=== PATIENT | female | born 1960 | race Caucasian/White ===

== ENCOUNTER 2017-09-14 09:41 | Emergency (ER) | payer SELFPAY ==
[~2017-09-14] VITALS: Ht 167.6 cm; Wt 79.4 kg
--- NOTE | 2017-09-14 10:12 | ED Integumentary General ---
General Chief Complaint: Bite-Animal/Human/Insect Stated Complaint: DOG BITE RIGHT WRIST Nursing Triage Note: PT STATES WAS BIT BY DOG LAST NITE ON R WRIST, PT HAS 2 FANGS MARADIAGA ON TOP 1CM AND BOTTOM 3CM OF WRIST. DOG WAS NEIGHBORS DOG AND IT UTD ON SHOTS. Source: patient, family Exam Limitations: no limitations History of Present Illness Date Seen by Provider: Sep 14, 2017 Time Seen by Provider: 10:07 Initial Comments Patient presents to ER by private conveyance with a chief complaint that she saw her neighbor's dog get hit by car and she went out to help it and it bit her on the right forearm. She is right-handed. She has no limitation in her range of motion or loss of sensation. She has not taken anything for the pain or should anything right now. Allergies and Home Medications Allergies Coded Allergies: Sulfa (Sulfonamide Antibiotics) (Verified Allergy, Unknown, 09/14/17) Home Medications No Active Prescriptions or Reported Meds Patient Home Medication List Home Medication List Reviewed: Yes Constitutional: No chills, No diaphoresis EENTM: No ear discharge, No hearing loss, No ear pain Respiratory: No cough, No short of breath Cardiovascular: No chest pain, No edema Gastrointestinal: No abdominal pain, No diarrhea, No dysphagia, No nausea Genitourinary: No discharge, No dysuria Past Fuhqdfe-Swdcza-Ifjqaj Hx Patient Social History Alcohol Use: Occasionally Uses Recreational Drug Use: No Smoking Status: Current Everyday Smoker Type Used: Cigarettes Recent Foreign Travel: No Contact w/Someone Who Travel: No Recent Infectious Disease Expo: No Recent Hopitalizations: No Physical Abuse: No Sexual Abuse: No Mistreated: No Immunizations Up To Date Tetanus Booster (TDap): More than 5yrs Seasonal Allergies Seasonal Allergies: No Past Medical History Surgeries: No Respiratory: No Cardiac: No Neurological: No Genitourinary: No Gastrointestinal: No Musculoskeletal: No Endocrine: No HEENT: No Cancer: No Psychosocial: No Nursing Suicide Risk Score: 0 Integumentary: No Blood Disorders: No Physical Exam Vital Signs Vital Signs - First Documented 09/14/17 09:55 Temp 97.4 Pulse 71 Resp 18 B/P (MAP) 119/94 (102) Pulse Ox 100 Capillary Refill : Less Than 3 Seconds General Appearance: WD/WN, no apparent distress HEENT: PERRL/EOMI, pharynx normal Cardiovascular: normal peripheral pulses, regular rate, rhythm, other ( capillary refill less than 2 seconds all 5 digits on the right hand) Neurologic/Psychiatric: alert, oriented x 3 Skin: other (there is a flap laceration on the dorsum of the right forearm approximately 2 cm long and a linear subcutaneous laceration on the anterior forearm approximately 3 similar's long.) Procedures/Interventions Wound Location: Upper Extremities Other Wound Location Anterior forearm Wound Length (cm): 3 Wound's Depth, Shape: linear, sub Q Wound Explored: clean Betadine Prep?: Yes (chlorhexidine soap water) Anesthesia: 1% Lidocaine Volume Anesthetic (ccs): 3 Wound Debrided: minimal Suture: Prolene Suture Size: 4-0 Number of Sutures: 4 Progress Patient's wound was cleaned thoroughly with chlorhexidine soap water and infiltrated with 1% lidocaine without epinephrine. When the patient was ascertained to be numb we then applied for simple interrupted sutures across the wound reapproximating the skin edges after draping in the usual sterile fashion and the patient tolerated the procedure very well. Wound Location: Upper Extremities Other Wound Location Dorsum right forearm Wound Length (cm): 2 Wound's Depth, Shape: flap (flap), sub Q Wound Explored: clean Betadine Prep?: Yes (chlorhexidine soap water) Anesthesia: 1% Lidocaine Volume Anesthetic (ccs): 3 Wound Debrided: minimal Suture: Prolene Suture Size: 4-0 Number of Sutures: 1 Progress The patient's wound was cleaned thoroughly with chlorhexidine soap water and infiltrated with 3 cc of 1% lidocaine without epinephrine. When the patient's wound was ascertained to be numb we closed the wound with a single stitch. We applied a corner stitch that nicely approximated the flap to the exterior wound edges. Wound was hemostatic and patient or procedure very well. Progress/Results/Core Measures Results/Orders My Orders Orders - AL LARES Dipht,Pertuss(Acell),Tet Adult (Boostrix (09/14/17 10:15) Medications Given in ED Current Medications Medications Dose Ordered Sig/Juventino Route Start Time Stop Time Status Last Admin Dose Admin Diphtheria/ Tetanus/Acell Pertussis 0.5 ml ONCE ONCE IM 09/14/17 10:15 09/14/17 10:16 DC 09/14/17 10:15 0.5 ML Vital Signs/I&O 09/14/17 09:55 Temp 97.4 Pulse 71 Resp 18 B/P (MAP) 119/94 (102) Pulse Ox 100 Blood Pressure Mean: 102 Departure Impression Primary Impression: Dog bite Qualified Codes: W54.0XXA - Bitten by dog, initial encounter Disposition: HOME, SELF-CARE Condition: Improved Departure-Patient Inst. Decision time for Depature: 10:52 Referrals: NO,LOCAL PHYSICIAN (PCP/Family) Primary Care Physician Patient Instructions: Animal Bites (DC) Add. Discharge Instructions: Usually superficial dog bites do not require antibiotics on the arm however if you start to have a lot of redness, swelling, drainage, fevers, nausea then you should return to a doctor for reevaluation. Keep the wounds clean with regular soap and water only. You may wear a dressing for the first 2 or 3 days as well as using Vaseline. Return to the ER in 10 days to have the stitches removed. If you have pain you can use 1000 g Tylenol in addition to 800 mg ibuprofen every 8 hours. All discharge instructions reviewed with patient and/or family. Voiced understanding. Scripts No Active Prescriptions or Reported Meds AL LARES Sep 14, 2017 10:12
[2017-09-14] MEDS ORDERED: TETANUS,DIPTH,PERTUSS P/F (BOOSTRIX) 0.5 ML VIAL IM ONE (10:15)
[2017-09-14 10:58] VITALS: BP 119/94
== END 2017-09-14 10:58 | disposition home or self-care (01) ==
LOC: EDUNIT# 09:41 → ER 09:44
DX: S51.851A Open bite of right forearm, initial encounter (principal); F17.210 Nicotine dependence, cigarettes, uncomplicated; Z23 Encounter for immunization; Z88.2 Allergy status to sulfonamides; W54.0XXA Bitten by dog, initial encounter
CPT/HCPCS: 90471; 90715; 99283

== ENCOUNTER 2017-09-24 10:45 | Emergency (ER) | payer SELFPAY ==
[~2017-09-24] VITALS: Ht 167.6 cm; Wt 79.4 kg
[2017-09-24 11:20] VITALS: BP 99/58
== END 2017-09-24 11:20 | disposition home or self-care (01) ==
LOC: EDUNIT# 10:45 → ER 10:48
DX: S51.811D Laceration without foreign body of right forearm, subsequent encounter (principal); X58.XXXD Exposure to other specified factors, subsequent encounter

== ENCOUNTER 2019-08-29 13:24 | Emergency (ER) | payer SELFPAY ==
[~2019-08-29] VITALS: Ht 167 cm; Wt 89.0 kg
--- NOTE | 2019-08-29 13:39 | ED Lower Extremity ---
General Chief Complaint: Lower Extremity Stated Complaint: L KNEE INJ Source: patient Exam Limitations: no limitations History of Present Illness Date Seen by Provider: Aug 29, 2019 Time Seen by Provider: 13:38 Initial Comments To ER with medial left knee pain. 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 She had immediate pain to the medial left knee. Onset: this evening Severity: moderate Pain/Injury Location: left knee Method of Injury: fell Modifying Factors: Worse With Movement Allergies and Home Medications Allergies Coded Allergies: Sulfa (Sulfonamide Antibiotics) (Verified Allergy, Unknown, 09/14/17) Home Medications Naproxen 500 Mg Tablet, 500 MG PO BID PRN for PAIN-MODERATE (5-7) Prescribed by: RANDI SWANSON on 08/29/19 1417 Patient Home Medication List Home Medication List Reviewed: Yes Review of Systems Constitutional: see HPI EENTM: see HPI Respiratory: no symptoms reported Cardiovascular: no symptoms reported Genitourinary: no symptoms reported Musculoskeletal: see HPI Skin: no symptoms reported Psychiatric/Neurological: No Symptoms Reported Past Vhnhxqq-Omitaz-Wxjzck Hx Patient Social History Alcohol Use: Rarely Uses Recreational Drug Use: No Smoking Status: Current Everyday Smoker Type Used: Cigarettes Recent Foreign Travel: No Contact w/Someone Who Travel: No Recent Hopitalizations: No Immunizations Up To Date Tetanus Booster (TDap): More than 5yrs Seasonal Allergies Seasonal Allergies: No Past Medical History Surgeries: No Respiratory: No Cardiac: No Neurological: No Genitourinary: No Gastrointestinal: No Musculoskeletal: No Endocrine: No HEENT: No Cancer: No Psychosocial: No Integumentary: No Blood Disorders: No Physical Exam Vital Signs Vital Signs - First Documented 08/29/19 08/29/19 13:25 14:40 Temp 36.9 Pulse 86 Resp 12 B/P (MAP) 121/82 (95) Pulse Ox 98 O2 Delivery Room Air Capillary Refill : Height, Weight, BMI Height: 5'6.00" Weight: 175lbs. oz. 79.471927xa; 28.12 BMI Method:Stated General Appearance: WD/WN, no apparent distress HEENT: PERRL/EOMI, normal ENT inspection Neck: non-tender, full range of motion Respiratory: no respiratory distress, no accessory muscle use Gastrointestinal: normal bowel sounds, non tender Hips: bilateral hip non-tender, bilateral hip normal inspection, bilateral hip normal range of motion Legs: bilateral leg non-tender, bilateral leg normal inspection, bilateral leg normal range of motion Knees: bilateral knee non-tender, bilateral knee normal inspection, bilateral knee normal range of motion Ankles: bilateral ankle non-tender, bilateral ankle normal inspection, bila teral ankle normal range of motion Feet: bilateral foot non-tender, bilateral foot normal inspection, bilateral foot normal range of motion Neurologic/Psychiatric: alert, normal mood/affect, oriented x 3 Skin: normal color, warm/dry Procedures/Interventions Suture Size: 4-0 Progress/Results/Core Measures Results/Orders My Orders Orders - RANDI SWANSON APRN Knee, Left, 3 Views (08/29/19 13:36) Knee Immobilizer (08/29/19 13:36) Vital Signs/I&O 08/29/19 08/29/19 13:25 14:40 Temp 36.9 Pulse 86 69 Resp 12 18 B/P (MAP) 121/82 (95) 136/71 Pulse Ox 98 98 O2 Delivery Room Air Departure Impression Primary Impression: Internal derangement of right knee Disposition: 01 HOME, SELF-CARE Condition: Stable Departure-Patient Inst. Decision time for Depature: 14:14 Referrals: NO,LOCAL PHYSICIAN (PCP) Primary Care Physician MANDI VITAL MD, MICHAEL P MD Patient Instructions: Internal Derangement of the Knee (DC) Add. Discharge Instructions: 1. Wear the immobilizer until the pain subsides 2. Pain medication as directed. Follow-up with either your family doctor or one of the orthopedists listed to discuss obtaining an MRI of the knee to evaluate the meniscus and ligament structures of the knee. To discuss All discharge instructions reviewed with patient and/or family. Voiced understanding. Scripts Naproxen (Naprosyn) 500 Mg Tablet 500 MG PO BID PRN for PAIN-MODERATE (5-7), #30 TAB 0 Refills Prov: RANDI SWANSON APRN 08/29/19 RANDI SWANSON APRN Aug 29, 2019 13:39
--- NOTE | 2019-08-29 14:06 | Diagnostic Imaging Report ---
INDICATION: Fall and left knee pain. TIME OF EXAM: 2:00 p.m. 3 views left knee were obtained. Alignment is normal. Joint spaces are well maintained. The articular surfaces are smooth. No fracture, dislocation or effusion is seen. IMPRESSION: No acute bony abnormality is detected. Dictated by: Dictated on workstation # [id number]
[2019-08-29] MEDS ORDERED: NAPR-1071 PO (14:17)
[2019-08-29 14:40] VITALS: BP 136/71
--- OUTSIDE RECORDS SUMMARY | 2019-08-29 15:27 | XMS REPORT | Continuity of Care Document ---
Author Organization Unknown Address Unknown Phone Unavailable Allergies Active Description Code Type Severity Reaction Onset Reported/Identified Relationship to Patient Clinical Status Yes Sulfa (Sulfonamide Antibiotics) [id number] Drug Allergy Unknown N/A 018 Medications There is no data. Problems Date Dx Coded Attending Type Code Diagnosis Diagnosed By 09/14/2017 AL LARES MD Ot F17.210 NICOTINE DEPENDENCE, CIGARETTES, UNCOMPL 09/14/2017 AL LARES MD Ot S51.851A OPEN BITE OF RIGHT FOREARM, INITIAL ENCO 09/14/2017 AL LARES MD Ot W54.0XXA BITTEN BY DOG, INITIAL ENCOUNTER 09/14/2017 AL LARES MD Ot Z23 ENCOUNTER FOR IMMUNIZATION 09/14/2017 AL LARES MD Ot Z88. 2 ALLERGY STATUS TO SULFONAMIDES STATUS 09/15/2017 LA LARES MD Ot F17.210 NICOTINE DEPENDENCE, CIGARETTES, UNCOMPL 09/15/2017 AL LARES MD Ot S51.851A OPEN BITE OF RIGHT FOREARM, INITIAL ENCO 09/15/2017 AL LARES MD Ot W54.0XXA BITTEN BY DOG, INITIAL ENCOUNTER 09/15/2017 AL LARES MD Ot Z23 ENCOUNTER FOR IMMUNIZATION 09/15/2017 AL LARES MD Ot Z88. 2 ALLERGY STATUS TO SULFONAMIDES STATUS 09/24/2017 CASSIE CHUN MD Ot S51.811D LACERATION W/O FOREIGN BODY OF RIGHT FOR 09/24/2017 CASSIE CHUN MD Ot X58.XXXD EXPOSURE TO OTHER SPECIFIED FACTORS, SUB 09/28/2017 CASSIE CHUN MD Ot S51.811D LACERATION W/O FOREIGN BODY OF RIGHT FOR 09/28/2017 CASSIE CHUN MD Ot X58.XXXD EXPOSURE TO OTHER SPECIFIED FACTORS, SUB Procedures There is no data. Results There is no data. Encounters ACCT No. Visit Date/Time Discharge Status Pt. Type Provider Facility Loc./Unit Complaint [id number] 08/29/2019 13:26:00 020 14:40:00 DIS Emergency RANDI SWANSON APRN [facility] ER L KNEE INJ [id number] 09/24/2017 10:48:00 018 11:20:00 DIS Emergency ADIEL SOTO, CASSIE Nunn [facility] ER SUTURE REMOVAL [id number] 09/14/2017 09:44:00 018 10:58:00 DIS Emergency ARNAUD SOTO, AL Mejia [facility] ER DOG BITE RIGHT WRIST
== END 2019-08-29 14:40 | disposition home or self-care (01) ==
LOC: EDUNIT# 13:24 → ER 13:26
DX: M23.91 Unspecified internal derangement of right knee (principal); F17.210 Nicotine dependence, cigarettes, uncomplicated; Z88.2 Allergy status to sulfonamides; W01.0XXA Fall on same level from slipping, tripping and stumbling without subsequent striking against object, initial encounter; Y92.009 Unspecified place in unspecified non-institutional (private) residence as the place of occurrence of the external cause
CPT/HCPCS: 73562; 99283; L1830